=== PATIENT | male | born 1935 | race Caucasian/White ===

== ENCOUNTER 2020-11-10 13:12 | Emergency (ER) | payer MEDICARE, BC ==
[2020-11-10] MEDS ORDERED: Sodium Chloride 0.9% 1,000 ML IV SCH (13:45)
--- NOTE | 2020-11-10 13:46 | EDM.PDOC ---
ED HPI GENERAL MEDICAL PROBLEM - General Chief Complaint: Gastrointestinal Problem Stated Complaint: FALL VIA NORTH Time Seen by Provider: 11/10/20 13:46 Source of Information: Reports: Patient, EMS, Detention Records History Limitations: Reports: No Limitations - History of Present Illness INITIAL COMMENTS - FREE TEXT/NARRATIVE: pt lives in the memory unit. He has been falling alot more recently. He has been hitting his head with the falls. Today he became very lethargic and there was concern he could have a head injury. He has not had a fever. Onset: Sudden Duration: Hour(s): Location: Reports: Head, Generalized, Other (pt is very lethargic. ) Associated Symptoms: Reports: No Other Symptoms, Other ( frequent falls. ) - Related Data Allergies Allergy/AdvReac Type Severity Reaction Status Date / Time No Known Allergies Allergy Verified 11/10/20 13:32 Home Meds: Home Meds Acetaminophen 500 mg PO QID 11/10/20 [History] Bacitracin [Bacitracin Oint 1 GM] 1 applicful TOP BID 11/10/20 [History] Carbidopa/Levodopa [Carbidopa-Levo 25-100 MG ODT] 1 tab PO QID 11/10/20 [History] Cholecalciferol (Vitamin D3) [Vitamin D3] 1 tab PO DAILY 11/10/20 [History] Cyanocobalamin (Vitamin B-12) [Vitamin B-12] 1,000 mcg PO DAILY 11/10/20 [History] Folic Acid 1 mg PO DAILY 11/10/20 [History] Losartan [Cozaar] 25 mg PO BID 11/10/20 [History] Magnesium 250 mg PO DAILY 11/10/20 [History] Jefferson-3 Fatty Acids [Jefferson-3] 1 tab PO BID 11/10/20 [History] Tamsulosin HCl 2 tab PO BEDTIME 11/10/20 [History] Trolamine Salicylate/Aloe Vera [Aspercreme 10% Cream] 1 applic TOP BID 11/10/20 [History] hydroCHLOROthiazide [Hydrochlorothiazide] 25 mg PO DAILY 11/10/20 [History] Past Medical History Cardiovascular History: Reports: Hypertension Gastrointestinal History: Reports: Chronic Constipation Genitourinary History: Reports: Prostate Disorder Neurological History: Reports: Parkinson's Psychiatric History: Reports: Dementia Social & Family History - Tobacco Use Tobacco Use Status *Q: Unknown Ever Used Tobacco ED ROS GENERAL - Review of Systems Review Of Systems: See Below Constitutional: Reports: Malaise, Other (pt is quite obtunded. ) HEENT: Reports: No Symptoms Respiratory: Reports: No Symptoms Cardiovascular: Reports: No Symptoms Endocrine: Reports: No Symptoms GI/Abdominal: Reports: No Symptoms, Other (pt has a mid abdomanal weakness. ) : Reports: No Symptoms Musculoskeletal: Reports: No Symptoms Skin: Reports: No Symptoms Neurological: Reports: Other (pt is obtunded. ) ED EXAM, GI/ABD - Physical Exam Exam: See Below Text/Narrative:: pt is very lethargic but he will respond. He has had multiple falls and there is a concern about a head injury. Exam Limited By: No Limitations General Appearance: Alert, Obtunded, Other (pupils are equal and reactive. ) Ears: Normal TMs Nose: Normal Inspection Throat/Mouth: Normal Inspection Head: Atraumatic Neck: Normal Inspection Respiratory/Chest: No Respiratory Distress Cardiovascular: Regular Rate, Rhythm GI/Abdominal Exam: Soft, Non-Tender (Male) Exam: Deferred Rectal (Males) Exam: Deferred Back Exam: Normal Inspection Extremities: Other (no sig edema. ) Neurological: Alert, Other (takes alot of stimulation. ) Course - Vital Signs Last Recorded V/S: Last Vital Signs Temp 36.6 C 11/10/20 13:25 Pulse 72 11/10/20 17:09 Resp 10 L 11/10/20 17:09 BP 153/70 H 11/10/20 17:09 Pulse Ox 98 11/10/20 17:09 - Orders/Labs/Meds Orders: Active Orders 24 hr Category Date Time Status CULTURE URINE [RM] Stat Lab 11/10/20 17:24 Received Sodium Chloride 0.9% [Normal Saline] 1,000 ml Med 11/10/20 13:45 Active IV ASDIRECTED Medication Orders Sodium Chloride (Normal Saline) 1,000 mls @ 999 mls/hr IV ASDIRECTED [facility] Last Admin: 11/10/20 14:15 Dose: 999 mls/hr Documented by: CONSTANTIN Labs: Laboratory Tests 11/10/20 11/10/20 11/10/20 Range/Units 13:50 13:50 15:11 WBC 7.6 (4.5-11.0) K/uL RBC 4.25 L (4.30-5.90) M/uL Hgb 12.8 (12.0-15.0) g/dL Hct 39.7 L (40.0-54.0) % MCV 93 (80-98) fL MCH 30 (27-31) pg MCHC 32 (32-36) % Plt Count 261 (150-400) K/uL Neut % (Auto) 69 H (36-66) % Lymph % (Auto) 19 L (24-44) % [place] % (Auto) 9 H (2-6) % Eos % (Auto) 3 (2-4) % Baso % (Auto) 0 (0-1) % Sodium 141 (140-148) mmol/L Potassium 4.0 (3.6-5.2) mmol/L Chloride 104 (100-108) mmol/L Carbon Dioxide 24 (21-32) mmol/L Anion Gap 12.7 (5.0-14.0) mmol/L BUN 20 H (7-18) mg/dL Creatinine 1.2 (0.8-1.3) mg/dL Est Cr Clr Drug Dosing 47.31 mL/min Estimated GFR (MDRD) 58 L (>60) Glucose 106 (74-106) mg/dL Lactic Acid (0.4-2.0) mmol/L Calcium 9.6 (8.5-10.1) mg/dL Total Bilirubin 0.6 (0.2-1.0) mg/dL AST 14 L (15-37) U/L ALT 15 (12-78) U/L Alkaline Phosphatase 82 (46-116) U/L Total Protein 7.1 (6.4-8.2) g/dL Albumin 3.2 L (3.4-5.0) g/dL Globulin 3.9 H (2.3-3.5) g/dL Albumin/Globulin Ratio 0.8 L (1.2-2.2) Urine Color Yellow (YELLOW) Urine Appearance Clear (CLEAR) Urine pH 7.0 (5.0-8.0) Ur Specific [place] 1.020 (1.008-1.030) Urine Protein Negative (NEGATIVE) mg/dL Urine Glucose (UA) Negative (NEGATIVE) mg/dL Urine Ketones Negative (NEGATIVE) mg/dL Urine Occult Blood Small H (NEGATIVE) Urine Nitrite Negative (NEGATIVE) Urine Bilirubin Negative (NEGATIVE) Urine Urobilinogen 0.2 (0.2-1.0) EU/dL Ur Leukocyte Esterase Negative (NEGATIVE) Urine RBC 10-20 H (0-5) Urine WBC Not seen (0-5) Ur Epithelial Cells Not seen Amorphous Sediment Not seen Urine Bacteria Rare Urine Mucus Not seen 11/10/20 Range/Units 15:17 WBC (4.5-11.0) K/uL RBC (4.30-5.90) M/uL Hgb (12.0-15.0) g/dL Hct (40.0-54.0) % MCV (80-98) fL MCH (27-31) pg MCHC (32-36) % Plt Count (150-400) K/uL Neut % (Auto) (36-66) % Lymph % (Auto) (24-44) % [place] % (Auto) (2-6) % Eos % (Auto) (2-4) % Baso % (Auto) (0-1) % Sodium (140-148) mmol/L Potassium (3.6-5.2) mmol/L Chloride (100-108) mmol/L Carbon Dioxide (21-32) mmol/L Anion Gap (5.0-14.0) mmol/L BUN (7-18) mg/dL Creatinine (0.8-1.3) mg/dL Est Cr Clr Drug Dosing mL/min Estimated GFR (MDRD) (>60) Glucose (74-106) mg/dL Lactic Acid 1.0 (0.4-2.0) mmol/L Calcium (8.5-10.1) mg/dL Total Bilirubin (0.2-1.0) mg/dL AST (15-37) U/L ALT (12-78) U/L Alkaline Phosphatase (46-116) U/L Total Protein (6.4-8.2) g/dL Albumin (3.4-5.0) g/dL Globulin (2.3-3.5) g/dL Albumin/Globulin Ratio (1.2-2.2) Urine Color (YELLOW) Urine Appearance (CLEAR) Urine pH (5.0-8.0) Ur Specific [place] (1.008-1.030) Urine Protein (NEGATIVE) mg/dL Urine Glucose (UA) (NEGATIVE) mg/dL Urine Ketones (NEGATIVE) mg/dL Urine Occult Blood (NEGATIVE) Urine Nitrite (NEGATIVE) Urine Bilirubin (NEGATIVE) Urine Urobilinogen (0.2-1.0) EU/dL Ur Leukocyte Esterase (NEGATIVE) Urine RBC (0-5) Urine WBC (0-5) Ur Epithelial Cells Amorphous Sediment Urine Bacteria Urine Mucus Meds: Medications Generic Name Dose Route Start Last Admin Trade Name Freq PRN Reason Stop Dose Admin Sodium Chloride 1,000 mls @ 999 mls/hr 11/10/20 13:45 11/10/20 14:15 Normal Saline IV 999 mls/hr ASDIRECTED [facility] Administration - Re-Assessments/Exams Free Text/Narrative Re-Assessment/Exam: 11/10/20 17:43 PT HAD A CAT SCAN OF THE HEAD WHICH WAS NEG FOR ACUTE FINDINGS. hIS LAB WORK LOOKED GOOD EXCEPT HE IS MILDLY DEHYDRATED. hE WAS GIVEN FLUIDS. tONIGHT HE SAIDD HE WAS HUNGREY AND A SUPPER TRAY WAS GOTTEEN AND HE ATE WELL . 11/10/20 17:44 Departure - Departure Time of Disposition: 17:45 Disposition: Home, Self-Care 01 Condition: Fair Clinical Impression: Lethargic, Dehydration - Discharge Information Referrals: Deya Foley [facility]GER [Primary Care Provider] - Forms: ED Department Discharge Care Plan Goals: CAT SCAN OF THE HEAD WAS NORMAL. dO A REASSESSMENT OF HIS FALL RISK, PUSH FLUIDS CONTINUE SAME MEDS, Sepsis Event Note (ED) - Evaluation Sepsis Screening Result: No Definite Risk - Focused Exam Vital Signs: Vital Signs Temp Pulse Resp BP Pulse Ox 11/10/20 17:09 72 10 L 153/70 H 98 11/10/20 16:39 67 9 L 146/60 H 98 11/10/20 16:09 69 9 L 157/74 H 99 11/10/20 15:39 69 10 L 138/90 94 L 11/10/20 15:09 69 14 153/66 H 96 11/10/20 14:39 68 9 L 139/63 98 11/10/20 14:09 70 11 L 135/64 96 11/10/20 13:39 67 10 L 145/68 H 98 11/10/20 13:25 36.6 C 67 10 L 134/67 97 11/10/20 13:23 36.6 C 67 10 L 134/67 97 - My Orders Last 24 Hours: My Active Orders 11/10/20 13:45 Sodium Chloride 0.9% [Normal Saline] 1,000 ml IV ASDIRECTED 11/10/20 17:24 CULTURE URINE [RM] Stat - Assessment/Plan Last 24 Hours: My Active Orders 11/10/20 13:45 Sodium Chloride 0.9% [Normal Saline] 1,000 ml IV ASDIRECTED 11/10/20 17:24 CULTURE URINE [RM] Stat
--- NOTE | 2020-11-10 14:39 | CT ---
Head wo Cont CLINICAL HISTORY: Multiple falls COMPARISON: None TECHNIQUE: Transverse scans were obtained from the base of the skull through the vertex without IV contrast on a multislice, multidetector CT scanner. Auto dosage reduction and iterative reconstruction techniques employed. FINDINGS: No focal abnormal parenchymal density is identified. There is no mass effect, hemorrhage, or extraaxial collection. The basal cisterns and sulci over the convexities are prominent. The ventricles are mildly prominent. There is some mucosal thickening in the ethmoid sinuses. There is fluid in both maxillary sinuses. IMPRESSION: No acute intracranial findings Ethmoid and maxillary sinusitis
== END 2020-11-10 18:44 | disposition home or self-care (01) ==
LOC: JP.ED 13:12
DX: E86.0 Dehydration (principal); I10 Essential (primary) hypertension; N42.9 Disorder of prostate, unspecified; G31.83 Neurocognitive disorder with Lewy bodies; F02.80 Dementia in other diseases classified elsewhere, unspecified severity, without behavioral disturbance, psychotic disturbance, mood disturbance, and anxiety; Z79.899 Other long term (current) drug therapy
CPT/HCPCS: 36415; 70450; 70450-26; 80053; 81001; 83605; 85025; 87086; 99283; 99285-25; J7030